=== PATIENT | male | born 1980 | race Caucasian/White ===

== ENCOUNTER 2022-05-07 09:19 | Emergency (ER) | payer OTHER, SELFPAY ==
[2022-05-07 09:33] VITALS: BP 130/74; PULSE 84; RESP 16; TEMP 37.3; O2SAT 100
--- NOTE | 2022-05-07 09:33 | ED.URI ---
HPI - URI/Sore Throat General Chief Complaint: Upper Respiratory Infection Stated Complaint: ear pain, chest cold, headache,fever Time Seen by Provider: 05/07/22 09:33 Source: patient and RN notes reviewed Mode of arrival: ambulatory Limitations: no limitations History of Present Illness HPI Narrative: 41-year-old male presented for complaint of headache, body aches, sinus pressure/congestion, cough, fever/chills. Onset 2 days ago. Endorses left ear pain worsening over the past couple of days as well. Taking Flonase for chronic deviated septum. Denies nausea, vomiting, chest pain shortness of breath or wheezing. He is boosted for COVID. MD elicited complaint: cough Related Data Home Medications Medication Instructions Recorded Confirmed Flonase 05/07/22 Zyrtec 05/07/22 atorvastatin 20 mg tablet tablet 05/07/22 fenofibrate nanocrystallized 145 tablet PO 05/07/22 mg tablet Allergies Allergy/AdvReac Type Severity Reaction Status Date / Time No Known Allergies Allergy Verified 05/07/22 09:29 Review of Systems Review of Systems: CONSTITUTIONAL: Endorses malaise, chills, sweats, fever EYES: Denies visual changes, redness, or discharge ENT: Reports rhinorrhea, congestion, sinus pain, otalgia, sore throat CARDIOVASCULAR: Denies chest pain, palpitations, edema RESPIRATORY: Reports cough, post nasal drainage. Denies dyspnea GASTROINTESTINAL: Denies abdominal pain, nausea, vomiting, diarrhea SKIN: Denies rash or itching MUSCULOSKELETAL: Endorses myalgia NEUROLOGIC: Denies headache Exam Narrative: GENERAL: Ill-appearing, nontoxic EYES: conjunctivae clear ENT: Mucous membranes moist. Left TM erythematous and bulging, dull reflex, canal is swollen and erythematous, no purulent drainage. Right TM pearly guallpa with dull light reflex; no tragal tenderness. CHEST: Clear to auscultation, breath sounds equal. No wheezing, rhonchi, rales, or stridor. HEART: Regular rate and rhythm. No murmur heard. SKIN: Warm, dry, no rash. NEURO: Alert and oriented x3. PSYCH: Normal mood and affect Course Course Emergency Course: Patient is aware of diagnosis, understands and agrees to treatment plan. Anticipatory guidance given. Patient agrees to follow-up as directed and is aware of reasons to seek care at the emergency department. Portions of this record may have been created with voice recognition software Level of Care: Express Care Visit Vital Signs Vital signs: Vital Signs Temperature 99.2 F 05/07/22 09:33 Pulse Rate 84 05/07/22 09:33 Respiratory Rate 16 05/07/22 09:33 Blood Pressure 130/74 05/07/22 09:33 Pulse Oximetry 100 05/07/22 09:33 Temperature 99.2 F 05/07/22 09:33 Pulse Rate 84 05/07/22 09:33 Respiratory Rate 16 05/07/22 09:33 Blood Pressure 130/74 05/07/22 09:33 Pulse Oximetry 100 05/07/22 09:33 reviewed MDM - URI/Sore Throat MDM Narrative Medical decision making narrative: COVID-positive, reviewed with patient. Advised supportive measures and signs/symptoms to go to the ER. Pt is appropriate for outpt treatment and f/u. Differential Diagnosis Differential diagnosis: Likely upper respiratory infection, sinusitis and viral infection Lab Data Labs: Lab Results 05/07/22 Range/Units 09:30 POC SARS CoV-2 Ag Positive (Negative) Discharge Plan Discharge Clinical Impression: COVID-19 Otitis media Qualifiers: Otitis media type: suppurative Chronicity: acute Laterality: left Recurrence: non-recurrent Spontaneous tympanic membrane rupture: without spontaneous rupture Qualified Code(s): H66.002 - Acute suppurative otitis media without spontaneous rupture of ear drum, left ear Patient Disposition: Home, Self-Care Condition: Stable Instructions: COVID-19 (Coronavirus Disease 2019) (ED) Additional Instructions: Take antibiotics as directed for the ear infection Please schedule a follow-up visit with your personal physician for further
== END 2022-05-07 09:52 | disposition home or self-care (01) ==
PROVIDERS: Emergency Provider Nurse Practitioner Family; PCP Internal Medicine
DX: U07.1 COVID-19 (principal); H66.002 Acute suppurative otitis media without spontaneous rupture of ear drum, left ear
CPT/HCPCS: 87426; 99203; C9803; G0463

== ENCOUNTER 2023-03-30 20:13 | Emergency (ER) | payer OTHER, SELFPAY ==
--- NOTE | ~2023-03-30 | XR_ITS ---
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 There is mild ulnar an gulation. There appears to be some loss of bone couple additional tiny fragments in the soft tissues palmar to the fracture where there appears be a skin laceration. No other fractures identified. Visua lized joint spaces are normal. IMPRESSION: 1. Open/compound fractures across the mid diaphysis of the left fifth distal phalanx with suggestion of a small amount of bone loss. Reviewed, dictated and finalized at location A. IMPRESSION: 1. Open/compound fractures across the mid diaphysis of the left fifth distal ph alanx with suggestion of a small amount of bone loss.
[2023-03-30 20:19] VITALS: BP 133/85; PULSE 74; RESP 20; TEMP 36.6; O2SAT 99
--- NOTE | 2023-03-30 20:54 | ED.GENADULT ---
HPI - General Adult General Chief complaint: Wound/Laceration Stated complaint: finger laceration Time Seen by Provider: 03/30/23 20:23 Related Data Home Medications Medication Instructions Recorded Confirmed Flonase 05/07/22 Zyrtec 05/07/22 atorvastatin 20 mg tablet tablet 05/07/22 fenofibrate nanocrystallized 145 tablet PO 05/07/22 mg tablet Allergies Allergy/AdvReac Type Severity Reaction Status Date / Time No Known Allergies Allergy Verified 03/30/23 20:22 Course Vital Signs Vital signs: Vital Signs Temperature 98 F 03/30/23 20:19 Pulse Rate 74 03/30/23 20:19 Respiratory Rate 20 03/30/23 20:19 Blood Pressure 133/85 03/30/23 20:19 Pulse Oximetry 99 03/30/23 20:19 Oxygen Delivery Room Air 03/30/23 20:19 Temperature 98 F 03/30/23 20:19 Pulse Rate 74 03/30/23 20:19 Respiratory Rate 20 03/30/23 20:19 Blood Pressure 133/85 03/30/23 20:19 Pulse Oximetry 99 03/30/23 20:19 Oxygen Delivery Room Air 03/30/23 20:19 Medical Decision Making Vital Signs Vital Signs: Vital Signs Temperature 98 F 03/30/23 20:19 Pulse Rate 74 03/30/23 20:19 Respiratory Rate 20 03/30/23 20:19 Blood Pressure 133/85 03/30/23 20:19 Pulse Oximetry 99 03/30/23 20:19 Oxygen Delivery Room Air 03/30/23 20:19 Temperature 98 F 03/30/23 20:19 Pulse Rate 74 03/30/23 20:19 Respiratory Rate 20 03/30/23 20:19 Blood Pressure 133/85 03/30/23 20:19 Pulse Oximetry 99 03/30/23 20:19 Oxygen Delivery Room Air 03/30/23 20:19 Discharge Plan Discharge Prescriptions: No Action atorvastatin 20 mg tablet fenofibrate nanocrystallized 145 mg tablet PO Flonase Zyrtec codeine-guaifenesin [Guaifenesin AC] 10-100 mg/5 mL liquid 10 ml PO Q4-6H PRN (Reason: cough) Qty: 120 0RF amoxicillin-pot clavulanate 875-125 mg tablet 1 tablet PO Q12H 7 Days Qty: 14 0RF benzonatate 200 mg capsule 200 mg PO TID PRN (Reason: cough) Qty: 20 0RF Follow-up/Referrals: Ileana,Lito Villa MD [Primary Care Provider] -
--- NOTE | 2023-03-30 22:13 | ED.GENADULT ---
HPI - General Adult General Chief complaint: Wound/Laceration Stated complaint: finger laceration Time Seen by Provider: 03/30/23 20:23 History of Present Illness HPI narrative: 42-year-old male presents to our department after he got his left pinky finger caught in a blue split trimmer just prior to arrival. Tetanus is up-to-date per patient. Related Data Home Medications Medication Instructions Recorded Confirmed Flonase 05/07/22 Zyrtec 05/07/22 atorvastatin 20 mg tablet tablet 05/07/22 fenofibrate nanocrystallized 145 tablet PO 05/07/22 mg tablet Allergies Allergy/AdvReac Type Severity Reaction Status Date / Time No Known Allergies Allergy Verified 03/30/23 20:22 Review of Systems Review of Systems: CONSTITUTIONAL: Denies fever, chills, or sweats. EYES: Denies visual changes, redness, or discharge. ENT: Denies rhinorrhea, congestion, sore throat, or otalgia. CARDIOVASCULAR: Denies chest pain, palpitations, or edema. RESPIRATORY: Denies cough or dyspnea. GASTROINTESTINAL: Denies abdominal pain, nausea, vomiting, or diarrhea. GENITOURINARY: Denies dysuria or hematuria. SKIN: Denies rash or itching. MUSCULOSKELETAL: Denies back pain, joint pain, or myalgia. NEUROLOGIC: Denies headache, numbness, or weakness. PSYCHIATRIC: Denies anxiety or depression. Exam Narrative: GENERAL: Well-appearing, well-nourished, and in no acute distress. HEAD: Normocephalic, atraumatic. EYES: PERRLA and EOMI. ENT: Nares clear, no rhinorrhea or epistaxis. Mucous membranes moist. NECK: Supple. CHEST: Clear to auscultation. No respiratory distress. HEART: Regular rate and rhythm. No murmur heard. Normal peripheral pulses. ABDOMEN: Soft, nontender, nondistended, normal active bowel sounds. EXTREMITIES: Normal range of motion. No edema. Left pinky finger is macerated at the distal tip SKIN: Warm, dry, no rash. NEURO: No focal deficits. Alert and oriented x3. PSYCH: Normal mood and affect. Course Vital Signs Vital signs: Vital Signs Temperature 98 F 03/30/23 20:19 Pulse Rate 74 03/30/23 20:19 Respiratory Rate 20 03/30/23 20:19 Blood Pressure 133/85 03/30/23 20:19 Pulse Oximetry 99 03/30/23 20:19 Oxygen Delivery Room Air 03/30/23 20:19 Temperature 98 F 03/30/23 20:19 Pulse Rate 74 03/30/23 20:19 Respiratory Rate 20 03/30/23 20:19 Blood Pressure 133/85 03/30/23 20:19 Pulse Oximetry 99 03/30/23 20:19 Oxygen Delivery Room Air 03/30/23 20:19 Medical Decision Making MDM Narrative Medical decision making narrative: IMPRESSION: 1. Open/compound fractures across the mid diaphysis of the left fifth distal phalanx with suggestion of a small amount of bone loss. Digit was copiously irrigated and tuft fracture noted. Wound closure with 15 interrupted sutures using 5-0 nylon. Good wound edge approximation. Patient tolerated the procedure well. Patient received first dose of Augmentin in the emergency department and will give the balance of a 7-day prescription at discharge. Dressing applied. Vital Signs Vital Signs: Vital Signs Temperature 98 F 03/30/23 20:19 Pulse Rate 74 03/30/23 20:19 Respiratory Rate 20 03/30/23 20:19 Blood Pressure 133/85 03/30/23 20:19 Pulse Oximetry 99 03/30/23 20:19 Oxygen Delivery Room Air 03/30/23 20:19 Temperature 98 F 03/30/23 20:19 Pulse Rate 74 03/30/23 20:19 Respiratory Rate 20 03/30/23 20:19 Blood Pressure 133/85 03/30/23 20:19 Pulse Oximetry 99 03/30/23 20:19 Oxygen Delivery Room Air 03/30/23 20:19 Discharge Plan Discharge Clinical Impression: Laceration, Open fracture of distal phalanx of little finger Patient Disposition: Home, Self-Care Condition: Stable Instructions: Antibiotic Form, Care For Your Stitches (ED), Laceration (ED) Additional Instructions: Please follow-up with the hand surgeon that you have been referred to. Please monitor wound for infection. Please
[2023-03-30] MEDS: HYDROcodone/acetaminophen (*CRX) 7.5-325 MG TABLET 1 TAB PO (22:46)
[2023-03-30] MEDS: AMOXICILLIN/CLAVULANATE K 875-125 MG TAB 1 TABLET PO (22:46)
== END 2023-03-30 22:51 | disposition home or self-care (01) ==
PROVIDERS: Emergency Provider Emergency Medicine
DX: S62.637B Displaced fracture of distal phalanx of left little finger, initial encounter for open fracture (principal); W29.3XXA Contact with powered garden and outdoor hand tools and machinery, initial encounter
CPT/HCPCS: 29130; 73140; 99284; A9270

== ENCOUNTER 2023-04-13 22:57 | Emergency (ER) | payer OTHER, SELFPAY ==
--- NOTE | ~2023-04-13 | CT_ITS ---
EXAMINATION: CT cervical spine wo con DATE: 04/13/2023 23:36 INDICATION: Neck pain after fall TECHNIQUE: Computed tomography (CT) of the cervical spine was performed without intravenous contrast. The dose-length product was 611 mGy-cm. Automated exposure control and iterative reconstruction tech nique were employed. COMPARISON: None FINDINGS: Craniovertebral junction is within normal limits. Odontoid process is normal. There is dege nerative disc disease with narrowing at C5-6, C6-7, C7-T1 and T1-2. There is associated spinal stenos is at C6-7. There is multilevel uncinate hypertrophy. Lung apices are normal. No acute fracture or tr aumatic malalignment. No evidence for perched facet. There are mildly prominent cervical lymph nodes, likely reactive. IMPRESSION: 1. No acute abnormality of the cervical spine. Reviewed, dictated and finalized at location A.
--- NOTE | ~2023-04-13 | CT_ITS ---
EXAMINATION: CT BRAIN W/O DATE: 04/13/2023 23:36 INDICATION: Status post fall. Posterior head laceration. TECHNIQUE: Computed tomography (CT) of the head was performed without intravenous contrast. The dose- length product was 605.33 mGy-cm. Automated exposure control and iterative reconstruction technique w ere employed. COMPARISON: No prior studies for comparison. FINDINGS: Normal brain parenchymal volume for age. Normal guallpa-white differentiation. No acute intrac ranial hemorrhage, infarction, mass or mass effect. No ventriculomegaly or midline shift. Midline sagittal images demonstrate a normal corpus callosum, c raniovertebral junction and sella turcica. Basilar cisterns are patent. Paranasal sinuses and mastoids are pneumatized. No depressed skull fractures. There is a left posteri or parietal scalp hematoma extending towards the vertex. IMPRESSION: 1. No acute intracranial abnormality. Reviewed, dictated and finalized at location A.
[2023-04-13 23:02] VITALS: BP 113/69; PULSE 65; RESP 18; O2SAT 95
[2023-04-13 23:04] VITALS: BP 113/69; PULSE 68; RESP 15; O2SAT 97
--- NOTE | 2023-04-13 23:21 | ED.HEATRA ---
HPI - Head Injury General Chief complaint: Head Injury Stated complaint: fall, hit head Time Seen by Provider: 04/13/23 23:04 Source: patient Mode of arrival: EMS Limitations: no limitations History of Present Illness HPI Narrative: Patient is a 42 y/o male who presents to the ED via EMS with c/o head injury. Patient reports he has been drinking EtOH today at a golf scramble. He stumbled in the driveway just prior to arrival and fell backwards. at bedside reports that his posterior head hit the ground like a basketball. Fall was witnessed by . Patient did not lose consciousness. He sustained a contusion and small laceration to his left posterior head. Patient denies any prodromal symptoms prior to the fall. Denies any current dizziness, lightheadedness, vision changes, nausea, vomiting, neck or back pain. He is not on any blood thinners. Tetanus UTD. Related Data Home Medications Medication Instructions Recorded Confirmed Flonase 05/07/22 Zyrtec 05/07/22 atorvastatin 20 mg tablet tablet 05/07/22 fenofibrate nanocrystallized 145 tablet PO 05/07/22 mg tablet Allergies Allergy/AdvReac Type Severity Reaction Status Date / Time No Known Allergies Allergy Verified 03/30/23 20:22 Review of Systems Review of Systems: CONSTITUTIONAL: Denies fever, chills, or sweats. EYES: Denies visual changes. CARDIOVASCULAR: Denies chest pain. RESPIRATORY: Denies dyspnea. GASTROINTESTINAL: Denies nausea, vomiting. MUSCULOSKELETAL: Denies back pain, neck pain, joint pain. NEUROLOGIC: See HPI. All systems reviewed & are unremarkable except as noted in HPI and below PMFSH Past Medical History Medical History (Updated 04/14/23 @ 00:22 by Serenity Anglin PA-C) HLD (hyperlipidemia) Exam Narrative: GENERAL: Well appearing, well-nourished, non-toxic, in no acute distress. HEAD: Normocephalic. Large hematoma/contusion to L posterior scalp, with 2cm linear laceration, no active bleeding. EYES: PERRLA/EOMI, conjunctiva clear. No nystagmus. NECK: Supple. No adenopathy, no masses. No midline spinal tenderness. RESPIRATORY: Airway patent, respirations nonlabored. Clear to auscultation bilaterally, no rales, rhonchi, wheezing. CARDIOVASCULAR: Regular rate and rhythm without murmurs, rubs, or gallops. Peripheral pulses 2+ and equal bilaterally. ABDOMINAL: Soft, nontender, nondistended, no hepatosplenomegaly. Normoactive BS. MUSCULOSKELETAL: Moves all extremities. Strength/ROM intact without gross deformities. No midline thoracic or lumbar spinal tenderness. SKIN: Warm, dry, normal color. No rashes. NEURO: A&O X3. Speech clear. Cranial nerves II-XII grossly intact. Steady gait. No ataxic movements. No focal deficits. PSYCHIATRIC: Appropriate mood and affect. Normal interaction. Course Vital Signs Vital signs: Vital Signs Pulse Rate 65 04/13/23 23:02 Respiratory Rate 18 04/13/23 23:02 Blood Pressure 113/69 04/13/23 23:02 Pulse Oximetry 95 04/13/23 23:02 Oxygen Delivery Room Air 04/13/23 23:02 Pulse Rate 73 04/14/23 00:15 Respiratory Rate 15 04/14/23 00:15 Blood Pressure 113/69 04/13/23 23:04 Pulse Oximetry 99 04/14/23 00:15 Oxygen Delivery Room Air 04/13/23 23:02 Procedures Laceration Laceration 1: Date: 04/14/23 Time: 00:23 Site: scalp Side (If applicable): left Size (cm): 2 Description: linear Depth: simple, single layer Local Anesthetic: none Pre-repair: wound explored and irrigated ====== Skin Level ====== Skin layer closed with: anny (#4) ====== Subcutaneous Layer ====== ====== Muscle Layer ====== ====== Tendon Layer ====== MDM - Head Injury MDM Narrative Medical decision making narrative: Patient presented to ED status post mechanical fall with head injury, ETOH on board. No prodromal symptoms prior to fall. Patient neurologically intact upon my ev
[2023-04-14 00:15] VITALS: PULSE 73; RESP 15; O2SAT 99
[2023-04-14 00:42] VITALS: BP 101/54; PULSE 70; RESP 17; O2SAT 96
== END 2023-04-14 00:43 | disposition home or self-care (01) ==
PROVIDERS: Emergency Provider Physician Assistant
DX: S09.90XA Unspecified injury of head, initial encounter (principal); S01.01XA Laceration without foreign body of scalp, initial encounter; F10.920 Alcohol use, unspecified with intoxication, uncomplicated; W18.39XA Other fall on same level, initial encounter; E78.5 Hyperlipidemia, unspecified; E04.1 Nontoxic single thyroid nodule
CPT/HCPCS: 12001; 70450; 72125; 99284

== ENCOUNTER → 2023-04-29 08:34 | Outpatient (CLI) | payer OTHER, SELFPAY ==
--- NOTE | ~2023-04-29 | XR_ITS ---
EXAMINATION: XR finger 5th LT min 2V DATE: 04/29/2023 08:57 INDICATION: Partial amputation with fracture of the left fifth distal phalanx post reattachment surge ry one month prior. TECHNIQUE: Dorsal palmar, lateral and 2 oblique views of the left fifth digit were obtained COMPARISON: None FINDINGS: Persistent lucent defect at a still ununited mildly comminuted fracture across the midportion of the left fifth distal phalanx which resection of mild palmar displacement of a small central bone fragmen t remains in near-anatomic alignment. No evident productive changes of healing yet apparent nor progr essive osteolysis to suggest osteomyelitis. Joint spaces are normal. IMPRESSION: 1. Near-anatomic alignment of a still ununited mildly comminuted mid diaphyseal fracture of the left fifth distal phalanx with no evident productive changes of healing yet apparent. Reviewed, dictated and finalized at location A. IMPRESSION: 1. Near-anatomic alignment of a still ununited mildly comminuted mid diaphyseal fracture of the left fifth distal phalanx with no evident productive changes o f healing yet apparent.
== END ==
PROVIDERS: Visit Provider Plastic Surgery
DX: S62.667A Nondisplaced fracture of distal phalanx of left little finger, initial encounter for closed fracture (principal); T14.90XA Injury, unspecified, initial encounter
CPT/HCPCS: 73140

== ENCOUNTER → 2023-05-28 09:20 | Outpatient (CLI) | payer OTHER, SELFPAY ==
--- NOTE | ~2023-05-28 | XR_ITS ---
XR finger 5th LT min 2V DATE: 05/28/2023 09:46 INDICATION: Fracture follow-up TECHNIQUE: 4 views COMPARISON: 04/29/2023 FINDINGS: There is evidence of bony bridging of the major proximal and distal fracture fragment of th e distal phalanx since 04/29/2023 consistent with interval healing. There is approximately 24 degrees apex anterior angulation. No other fracture or dislocation. IMPRESSION: Evidence of interval healing of distal phalangeal fracture since Reviewed, dictated and finalized at location L. IMPRESSION: Evidence of interval healing of distal phalangeal fracture since 04/2023
== END ==
PROVIDERS: PCP Plastic Surgery; Visit Provider Plastic Surgery
DX: S62.667D Nondisplaced fracture of distal phalanx of left little finger, subsequent encounter for fracture with routine healing (principal)
CPT/HCPCS: 73140

== ENCOUNTER → 2023-07-01 16:15 | Outpatient (CLI) | payer OTHER, SELFPAY ==
--- NOTE | ~2023-07-01 | XR_ITS ---
EXAMINATION: XR finger 5th LT min 2V DATE: 07/01/2023 16:41 INDICATION: Nondisplaced fracture of the left fifth digit TECHNIQUE: Dorsal palmar, lateral and 2 oblique views of the left fifth digit were obtained COMPARISON: None FINDINGS: Again seen is an oblique mid diaphyseal fracture of the left fifth distal phalanx 18 degree dorsal an gulation. There is subtle increased formation centrally along the still clearly discernible f racture line consistent with progression of healing. No other fractures identified. Mild osteoarthrit is at the interphalangeal joints and the fourth and fifth digits. Soft tissues are unremarkable. IMPRESSION: 1. Progressive healing of a distal left fifth phalangeal fracture. Reviewed, dictated and finalized at location A.
== END ==
PROVIDERS: PCP Plastic Surgery; Visit Provider Plastic Surgery
DX: S62.667A Nondisplaced fracture of distal phalanx of left little finger, initial encounter for closed fracture (principal); X58.XXXA Exposure to other specified factors, initial encounter
CPT/HCPCS: 73140